=== PATIENT | male | born 1995 | race Caucasian/White ===

== ENCOUNTER 2019-07-18 14:08 | Emergency (ER) | payer OTHER ==
[~2019-07-18] VITALS: Ht 177.8 cm; Wt 81.7 kg
[~2019-07-18 14:08] MED LIST: NORCO 5-325 TA1 EACH PO
[2019-07-18] MEDS ORDERED: NORCO 5-325 TA1 EAC1 PO (15:44)
[2019-07-18 16:10] VITALS: BP 112/60
== END 2019-07-18 16:10 | disposition home or self-care (01) ==
LOC: M.ERS 14:08
DX: S43.085A Other dislocation of left shoulder joint, initial encounter (principal); V18.0XXA Pedal cycle driver injured in noncollision transport accident in nontraffic accident, initial encounter; Y93.89 Activity, other specified; Y92.89 Other specified places as the place of occurrence of the external cause; Y99.8 Other external cause status